=== PATIENT | female | born 1950 | race Asian ===

== ENCOUNTER 2018-07-19 07:24 | Day surgery (SDC) | payer OTHER ==
[2018-07-18 12:15] VITALS: BMI 20.9
[~2018-07-19 07:24] MED LIST: BUPIVACAINE HCL/PF 0.25% (2.5MG/ML) 10 ML VIAL IJ ONE
[2018-07-19] MEDS ORDERED: LIDOCAINE HCL 2% (20ML MULTI-DOSE VIAL) NR ONE (09:54)
[2018-07-19] MEDS ORDERED: LIDOCAINE HCL/PF 2% SDV 5ML VIAL ONE (09:59)
[2018-07-19] MEDS ORDERED: PROPOFOL 20 ML ONE ×2 (09:59)
[2018-07-19] MEDS ORDERED: MIDAZOLAM HCL 2 MG/2 ML SINGLE DOSE VIAL ONE (09:59)
[2018-07-19] MEDS ORDERED: ceFAZolin SODIUM 1 GM VIAL ONE (09:59)
[2018-07-19] MEDS ORDERED: ceFAZolin SODIUM 1 GM VIAL IVPB ONE (10:05)
[2018-07-19] MEDS ORDERED: LIDOCAINE HCL 2% (50ML VIAL) INF ONE (10:11)
[2018-07-19] MEDS ORDERED: KETOROLAC TROMETHAMINE 30 MG/1 ML VIAL ONE (10:17)
[2018-07-19] MEDS ORDERED: BUPIVACAINE HCL/PF 0.25% (2.5MG/ML) 10 ML VIAL IJ ONE (11:37)
[2018-07-19] MEDS ORDERED: oxyCODONE HCL 5 MG TABLET PO PRN (11:54)
[2018-07-19] MEDS ORDERED: ACETAMINOPHEN 325 MG TABLET (FP) PO PRN (11:54)
[2018-07-19] MEDS ORDERED: ONDANSETRON 4 MG/2 ML VIAL IVPUSH PRN (11:54)
[2018-07-19] MEDS ORDERED: LACTATED RINGERS SOLUTION 1,000 ML IV SCH (12:00)
[2018-07-19] MEDS ORDERED: hydrALAZINE HCL 20 MG/ML VIAL ONE (12:16)
--- NOTE | 2018-07-19 15:17 | OP ---
DATE OF OPERATION: 07/19/2018 SURGEON: Dennis Mosqueda DPM SYSTEM SUPPORT DEVELOPER: PREOPERATIVE DIAGNOSIS: Right foot 2nd hammertoe. POSTOPERATIVE DIAGNOSIS: Right foot 2nd hammertoe. PROCEDURE: Right foot 2nd digit arthrodesis with implant. HEMOSTASIS: Pneumatic ankle tourniquet 250 mmHg. ANESTHESIA: MAC with local anesthesia. ESTIMATED BLOOD LOSS: Minimal. DESCRIPTION OF PROCEDURE: The patient was brought to the operating room table and placed in supine position. After adequate sedation was administered, local anesthesia was administered to the right 2nd digit using 2% lidocaine plain with a total of 10 mL used. The right foot was then prepped and draped in the usual aseptic fashion. After exsanguination of the right foot and careful placement of cast padding at the ankle, the right foot was then prepped and draped in the usual aseptic fashion. At this time, a dorsal linear incision was made at the level of PIPJ of the right 2nd digit. The incision was deepened through subcutaneous tissue with care taken to retract all vital neurovascular structures. All bleeders were cauterized as necessary. At this time, the extensor tendon was transected, and the head of the proximal phalanx was freed from all soft tissue attachments. Using the sagittal saw, the head of the proximal phalanx was resected and passed from the operative field for specimen. At this time, the base of the middle phalanx was reamed, and a K-wire was drilled in retrograde fashion to the distal phalanx. At this time, a Trilliant implant was slid into position and was noted to be in rectus position. At this time, the surgical site was then flushed with normal saline solution and the extensor tendon was reapproximated using 3-0 Vicryl and the subcutaneous tissue was reapproximated using 3-0 Vicryl and the skin was reapproximated using 4-0 nylon in simple horizontal mattress. The tourniquet was deflated at this time, and a prompt hyperemic response was noted to the right foot. The surgical site was then dressed with sterile 4 x 4, Corey, and Fracisco. The patient was brought back to PACU in good condition and vitals stable. , dictating for PABLO Adam DPM /[id number]
[2018-07-19 18:39] VITALS: BP 118/68; PULSE 72; TEMP 97.8
--- NOTE | 2018-07-23 17:05 | PATH ---
Surgical Pathology Report Patient Name: TATIANA REAL [facility]. Rec. #: [id number] /Age/Gender: 1950 (Age: 67) / F Account: [id number] Location: [facility] SURGICAL Taken: 07/19/2018 Received: 07/19/2018 Reported: 07/23/2018 Physicians: Dennis Mosqueda DPM Specimen(s) Received BONE, RIGHT HAMMERTOE 2ND DIGIT Clinical History Right second toe Hammer toe Final Diagnosis BONE, SECOND DIGIT, RIGHT, HAMMERTOE AND IMPLANT ARTHRODESIS: BONE WITH DEGENERATIVE CHANGES. Electronically Signed Michelle Arreguin M.D. Gross Description Received in formalin labeled "bone right hammertoe second," is a 1.0 x 0.6 x 0.4 cm wilkerson portion of bone. The specimen is bisected and entirely submitted in one cassette, following decalcification. 07/20/2018 saudi07/20/2018
== END 2018-07-19 14:30 | disposition home or self-care (01) ==
LOC: JASU-SURG 07:24
PROVIDERS: ATTEND Podiatrist Foot Surgery
PROC: 0SRP0JZ Replacement of Right Toe Phalangeal Joint with Synthetic Substitute, Open Approach (ICD-10-PCS; principal; 2018-07-19 09:00)
DX: M20.41 Other hammer toe(s) (acquired), right foot (principal)
CPT/HCPCS: 88305-TC; 88311-TC; 94760